=== PATIENT | female | born 1940 | race Caucasian/White ===

== ENCOUNTER 2017-05-04 06:01 | Observation (INO) | payer MEDICARE, OTHER ==
--- NOTE | 2017-05-04 06:30 | EDM.PDOC ---
ED HPI GENERAL MEDICAL PROBLEM - General Chief Complaint: Syncope Stated Complaint: SYNCOPE Time Seen by Provider: 05/04/17 06:05 Source of Information: Reports: Patient, Family History Limitations: Reports: No Limitations - History of Present Illness INITIAL COMMENTS - FREE TEXT/NARRATIVE: This is a 77-year-old female. They are staying in [place] in their RV. This morning she apparently woke up because she was congested she got out of bed and went to the bathroom to spray some saline and her nose then she walked to the kitchen to see what time it was initially was walking back she passed out. The patient does not remember passing out however she does remember waking up. Her found her on the floor in the hallway of the RV. When he got to her she was mostly unresponsive but she came awake quickly she was slightly confused for about a minute or 2 and then she's been coherent since that time. She's had no chest pain and she doesn't believe she hit her head she denies any back pain or extremity pain. She was not diaphoretic when the got to her. When she first started waking up she complained of some mild dizziness and nausea but no vomiting. She takes no prescription medications for diabetes blood pressure heart problems. Other than the upper respiratory infection she denies any other recent illnesses. 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 Denies: Diarrhea, Vomiting : Reports: No Symptoms Musculoskeletal: Reports: No Symptoms Skin: Reports: No Symptoms Neurological: Reports: Confusion, Dizziness. Denies: Headache, Tingling Psychiatric: Reports: No Symptoms Hematologic/Lymphatic: Reports: No Symptoms - Physical Exam Exam: See Below Exam Limited By: No Limitations General Appearance: Alert, WD/WN, No Apparent Distress, Other (Patient is coherent is oriented 3 and denies any physical maladies) Eye Exam: Bilateral Eye: Normal Inspection, Other (Good pupillary reflex) Ears: Normal External Exam, Normal Canal, Normal TMs Nose: Normal Inspection Throat/Mouth: Normal Inspection, Normal Lips, Normal Oropharynx, Normal Voice, No Airway Compromise Head Exam: Atraumatic, Normocephalic Neck: Supple, Non-Tender Respiratory/Chest: No Respiratory Distress, Lungs Clear, Normal Breath Sounds Cardiovascular: Regular Rate, Rhythm, No Murmur GI/Abdominal: Soft Neuro Exam (Abbreviated): Alert, Oriented, Normal Cognition Back Exam: Normal Inspection, Full Range of Motion Extremities: Normal Inspection, Normal Range of Motion, Non-Tender, No Pedal Edema Psychiatric: Normal Affect, Normal Mood Skin Exam: Warm, Dry EKG INTERPRETATION EKG Date: 05/04/17 Time: 06:35 EKG Interpretation Comments: EKG shows a normal sinus rhythm with no acute ST or T-wave changes and no ischemic changes noted. Course - Vital Signs Last Recorded V/S: Last Vital Signs Temp 97.3 F 05/04/17 06:08 Pulse 81 05/04/17 06:08 Resp 20 05/04/17 06:08 BP 147/115 H 05/04/17 06:08 Pulse Ox 100 05/04/17 06:08 - Orders/Labs/Meds Orders: Active Orders 24 hr Category Date Time Status Patient Status [ADT] Routine ADT 05/04/17 08:06 Ordered EKG 12 Lead [EKG Documentation Completion] [RC] STAT Care 05/04/17 06:28 Active Head wo Cont [CT] Stat Exams 05/04/17 06:27 Taken Labs: Laboratory Tests 05/04/17 05/04/17 Range/Units 06:43 06:43 WBC 8.71 (3.98-10.04) K/mm3 RBC 4.53 (3.98-5.22) M/mm3 Hgb 13.3 (11.2-15.7) gm/L Hct 40.0 (34.1-44.9) % MCV 88.3 (79.4-94.8) fl MCH 29.4 (25.6-32.2) pg MCHC 33.3 (32.2-35.5) g/dl RDW Std Deviation 42.1 (36.4-46.3) fL Plt Count 222 (182-369) K/mm3 MPV 10.3 (9.4-12.3) fl Neut % (Auto) 76.3 H (34.0-71.1) % Lymph % (Auto) 16.0 L (19.3-51.7) % [place] % (Auto) 6.0 (4.7-12.5) % Eos % (Auto) 1.1 (0.7-5.8) Baso % (Auto) 0.3 (0.1-1.2) % Neut # (Auto) 6.64 H (1.56-6.13) K/mm3 Lymph # (Auto) 1.39 (1.18-3.74) K/mm3 [place] # (Auto) 0.52 H (0.24-0.36) K/mm3 Eos # (Auto) 0.10 (0.04-0.36) K/mm3 Baso # (Auto) 0.03 (0.01-0.08) K/mm3 Sodium 141 (136-145) mEq/L Potassium 4.0 (3.5-5.1) mEq/L Chloride 105 (98-107) mEq/L Carbon Dioxide 28 (21-32) mEq/L Anion Gap 12.0 (5-15) BUN 19 H (7-18) mg/dL Creatinine 0.9 (0.55-1.02) mg/dL Est Cr Clr Drug Dosing 52.52 mL/min Estimated GFR (MDRD) > 60 (>60) mL/min BUN/Creatinine Ratio 21.1 H (14-18) Glucose 112 (83-115) mg/dL Calcium 10.0 (8.5-10.1) mg/dL Total Bilirubin 0.4 (0.2-1.0) mg/dL AST 20 (15-37) U/L ALT 22 (14-59) U/L Alkaline Phosphatase 88 (46-116) U/L Troponin I 0.024 (0.00-0.056) ng/mL Total Protein 7.3 (6.4-8.2) g/dl Albumin 3.7 (3.4-5.0) g/dl Globulin 3.6 gm/dL Albumin/Globulin Ratio 1.0 (1-2) - Radiology Interpretation Free Text/Narrative:: CT Scan shows a minimal hyperdensity in the right parietal subdural 3.5 mm in length which they think represents a prominent venous structure however they cannot rule out an acute subdural. - Re-Assessments/Exams Free Text/Narrative Re-Assessment/Exam: 05/04/17 08:03 I spoke to the patient and the regarding this finding and we are going to keep her in observation with neuro checks and then do an MRI tomorrow morning and if it's good we will release her at that time if it's not then we will find appropriate care for her. Even though they live in [place] I am concerned that if further bleeding occurs that treatment would be delayed if she were home were driving home and it would be best to have her in observation here. Departure - Departure Time of Disposition: 08:04 Disposition: Refer to Observation Condition: Good Clinical Impression: Syncope and collapse, Subdural hematoma - Discharge Information Referrals: PCP,Not In Area [Primary Care Provider] - Forms: ED Department Discharge Additional Instructions: I spoke with Dr. Adames and he will admit the patient to observation for further evaluation and treatment - My Orders Last 24 Hours: My Active Orders 05/04/17 06:27 Head wo Cont [CT] Stat 05/04/17 06:28 EKG 12 Lead [EKG Documentation Completion] [RC] STAT 05/04/17 08:06 Patient Status [ADT] Routine - Assessment/Plan Last 24 Hours: My Active Orders 05/04/17 06:27 Head wo Cont [CT] Stat 05/04/17 06:28 EKG 12 Lead [EKG Documentation Completion] [RC] STAT 05/04/17 08:06 Patient Status [ADT] Routine
--- NOTE | 2017-05-04 09:20 | PCM.HP ---
H&P History of Present Illness - General Date of Service: 05/04/17 Admit Problem/Dx: Admission Diagnosis/Problem Admission Diagnosis/Problem Syncope and collapse Source of Information: Patient, Family, Provider, RN Notes Reviewed History Limitations: Reports: No Limitations - History of Present Illness Initial Comments - Free Text/Narative: This is a 77 year old healthy elderly white female with no significant past medical history except for allergic rhinitis, sinusitis and migraines who was brought over to the emergency department for evaluation after she developed a one-time episode of syncope that took place in her RV. Patient and her are currently staying in [place]. They are originally from [place]. This morning apparently the patient feeling congested got out of bed and went to the bathroom to use some nasal spray. When she walked to the kitchen to check the time, she passed out on her way back. She denies any memory of the event but remembers waking up. The event was unwitnessed but she was found by her on the floor in the hallway all of their RV. When she was found the patient was unresponsive and when she woke up she was slightly confused for about 2 minutes or so and then came back to her baseline. Patient denies any prodromal symptoms. No seizures activity noted. No loss of bladder or bowel control. She has not had any episode of it in the past. Her symptom was associated with mild dizziness and nausea but no vomiting on presentation to the emergency department. Her initial workup in ED shows a fairly unremarkable CBC and chemistry. Her troponin 1 is negative. Her UA is negative and it does not suggest severe dehydration. Her EKG shows normal sinus rhythm. Head CT scan [facility] report reads minimal hyperdensity in the right parietal subdural space 3.5 mm in width. This is thought to be prominent venous structure. Her initial vital signs on presentation to the emergency department shows a temperature of 97.3F, pulse of 81 bpm, respiratory rate of 20, blood pressure 147/15 mm per mercury and O2 sat of 100% on room air. Patient is being admitted for further observation and for a brain MRI in the morning. She is full code. 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 Denies: Chest Pain, Palpitations, Dyspnea on Exertion, Lightheadedness, Claudication, Blood Pressure Problem Gastrointestinal: Denies: Abdominal Pain, Nausea, Vomiting Genitourinary: Reports: No Symptoms Musculoskeletal: Reports: No Symptoms Skin: Denies: Cyanosis, Jaundice, Mottled, Pallor, Erythema, Wound, Change in Hair/Nails Psychiatric: Denies: Confusion, Depression, Mood Lability, Anxiety, Hallucinations, Suicidal Ideation, Homicidal Ideation, Hallucinations (Auditory) Neurological: Reports: Dizziness, Syncope. Denies: Confusion, Headache, Paresthesia, Pre-Existing Deficit, Seizure, Tingling, Tremors, Trouble Speaking , Difficulty Walking, Weakness, Change in Speech, Gait Disturbance Hematologic/Lymphatic: Reports: No Symptoms Immunologic: Reports: No Symptoms Exam - Exam Exam: See Below - Vital Signs Vital Signs: Last Vital Signs Temp 36.3 C 05/04/17 06:08 Pulse 81 05/04/17 06:08 Resp 20 05/04/17 06:08 BP 147/115 H 05/04/17 06:08 Pulse Ox 100 05/04/17 06:08 Weight: 66.678 kg - Exam General: Alert, Oriented, Cooperative. No: Mild Distress HEENT: Conjunctiva Clear, EACs Clear, EOMI, Hearing Intact, Mucosa Moist & [place] , Normal Nasal Septum, Posterior Pharynx Clear, Pupils Equal, Pupils Reactive, Rhinitis. No: Nares Patent (congested) Neck: Supple, Trachea Midline, +2 Carotid Pulse wo Bruit, Full Range of Motion. No: JVD Lungs: Clear to Auscultation, Normal Respiratory Effort Cardiovascular: Regular Rate, Regular Rhythm GI/Abdominal Exam: Normal Bowel Sounds, Soft, Non-Tender, No Organomegaly, No Distention, No Abnormal Bruit, No Mass (Female) Exam: Deferred Rectal (Female) Exam: Deferred Back Exam: Normal Inspection, Decreased Range of Motion Extremities: Normal Inspection, Normal Range of Motion, Non-Tender, No Pedal Edema, Normal Capillary Refill Skin: Warm, Dry, Intact Neuro Extensive - Mental Status: Oriented x3, Normal Cognition, Memory Intact Neuro Extensive - Motor, Sensory, Reflexes: CN II-XII Intact, Abnormal Gait DTR: 2+: Patella (L), Patella (R) Psychiatric: Alert, Normal Affect, Normal Mood - Patient Data Result Diagrams: 05/05/17 06:20 05/05/17 06:20 EKG INTERPRETATION EKG Date: 05/04/17 Time: 06:38 Rhythm: NSR Rate (Beats/Min): 69 *Q Meaningful Use (ADM) - VTE *Q VTE Criteria *Q: - Stroke *Q Stroke Criteria *Q: - AMI *Q AMI Criteria *Q: Problem List Initiated/Reviewed/Updated: Yes Assessment/Plan Comment:: Assessment/Plan: Acute: Minimal Hyperdensity in the right parietal subdural3.5 mm in with - Prominent venous structure versus acute subdural hematoma - Patient has a recent fall and she passed out - Neurological monitoring per unit protocol - Brain MRI in AM S/p Syncope with Collapsed - Unclear in etiology but possible vasovagal from malignant HTN - She had a document BP of 147/115 mmHg on admission - She carries no hx/o HTN - No cardiac arrhythmia on EKG or Telemetry - She is not clinically dehydrated - UA was negative for UTI Chronic: Allergic Rhinitis Sinusitis Plan: Admit to the floor w/ Tele Routine AM Labs Afrin 15 ml nasal spray 1-2 puff each nostril BID Orthostatic check Resume Home Meds if there are any PT/OT eval Brain MRI in AM SW/CM for d/c planning Code status:1
[2017-05-04] MEDS ORDERED: Acetaminophen/HYDROcodone 325-5 MG Tab PO PRN (09:21)
[2017-05-04] MEDS ORDERED: Docusate Sodium 100 MG Cap PO PRN (09:21)
[2017-05-04] MEDS ORDERED: HYDROmorphone 1 MG/ML Syringe IVPUSH PRN (09:21)
[2017-05-04] MEDS ORDERED: LORazepam 2 MG/ML MDV IV PRN (09:21)
[2017-05-04] MEDS ORDERED: Polyethylene Glycol 3350 Powder 17 GM Packet PO PRN (09:21)
[2017-05-04] MEDS ORDERED: Bisacodyl 5 MG Tab PO PRN (09:21)
[2017-05-04] MEDS ORDERED: Acetaminophen 325 MG Tab PO PRN (09:21)
[2017-05-04] MEDS ORDERED: Temazepam 7.5 MG Cap PO PRN (09:21)
[2017-05-04] MEDS ORDERED: Promethazine 12.5 MG in Sodium Chloride 0.9% 50 ML IV PRN (09:21)
[2017-05-04] MEDS ORDERED: Magnesium Hydroxide 400 MG/5 ML Susp 30 ML Cup PO PRN (09:21)
[2017-05-04] MEDS ORDERED: Albuterol/Ipratropium 3.0-0.5 MG/3 ML Neb Soln NEB PRN (09:21)
[2017-05-04] MEDS ORDERED: Ondansetron 4 MG/2 ML SDV IV PRN (09:21)
[2017-05-04] MEDS ORDERED: Scopolamine 1.5 MG Transdermal Patch TOP ONE (09:29)
[2017-05-04] MEDS ORDERED: Meclizine 12.5 MG Tab PO PRN (09:29)
[2017-05-04] MEDS ORDERED: Metoprolol Tartrate 5 MG/5 ML SDV IVPUSH PRN (09:33)
[2017-05-04] MEDS ORDERED: hydrALAZINE 20 MG/ML SDV IVPUSH PRN (09:33)
[2017-05-04] MEDS: Oxymetazoline 0.05% Nasal Spray 15 ML Bottle NAS SCH ×2 (11:17→21:42)
[2017-05-04] MEDS: Sodium Chloride 0.9% 1,000 ML IV SCH (11:17)
--- NOTE | 2017-05-04 18:24 | CT ---
Head CT Technique: Multiple axial sections through the brain were obtained. Intravenous contrast was not utilized. Comparison: No previous intracranial imaging. Findings: Ventricles along with basal cisterns and sulci over the convexities are within normal limits for the patient's age. 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 Small vessel ischemic demyelination change is also noted within the periventricular white matter. Preliminary report mentions small hyperdense area within the right parietal region which I believe is artifact rather than representing a real hemorrhage. No other abnormal parenchymal densities are seen. No evidence of intracranial hemorrhage. No midline shift or mass effect is seen. Bone window settings were reviewed which show the visualized sinuses to appear clear. No acute calvarial abnormality is seen. Mild atherosclerotic calcification noted within the carotid siphon. Impression: 1. Senescent change as described above. 2. Nothing acute is appreciated on noncontrast head CT exam. Diagnostic code #2 Mostly agree with preliminary report issued by [facility], small area of increased density within the right parietal region described on preliminary report is felt to be artifact. ([facility] preliminary report dictated on 05/04/17, 8:47 AM Central Type)
[2017-05-05] MEDS: Sodium Chloride 0.9% 1,000 ML IV SCH (04:37)
--- NOTE | 2017-05-05 08:08 | PCM.DCSUM1 ---
Discharge Summary - Hospital Course Brief History: This is a 77 year old fairly healthy elderly white female with no significant past medical history except for allergic rhinitis, sinusitis and migraines who was brought over to the emergency department for evaluation after she developed a one-time episode of syncope that took place in her RV at [place]. She was admitted for further evaluation. - Discharge Data Discharge Date: 05/05/17 Discharge Disposition: Home, Self-Care 01 Condition: Good - Discharge Diagnosis/Problem(s) (1) Malignant essential hypertension SNOMED Code(s): 63340302 ICD Code: I10 - ESSENTIAL (PRIMARY) HYPERTENSION Status: Acute (2) Syncope and collapse SNOMED Code(s): 755512189 ICD Code: R55 - SYNCOPE AND COLLAPSE Status: Resolved (3) Vasovagal symptom SNOMED Code(s): 472710664 ICD Code: F45.8 - OTHER SOMATOFORM DISORDERS Status: Resolved - Patient Summary/Data Operative Procedure(s) Performed: None Complications: None Consults: Consultations 05/04/17 09:21 Consult to Case Management [CONS] Routine Consult to Hand Wrapper Operator [CONS] Routine Consult to Spiritual Care [CONS] Routine OT Evaluation and Treatment [CONS] Routine PT Evaluation and Treatment [CONS] Routine Recommended Follow-up Testing/Procedures: None Hospital Course: Patient was primarily admitted for medical evaluation of onetime episode of syncope with collapsed. This happened while the patient was in her RV at [place]. Her basic diagnostic workup to include routine EKGs, telemetry, head CT scan, cardiac enzyme and labs were all benign. We felt her syncope was related to vasovagal in etiology. Her follow-up MRI this morning revealed no acute abnormalities as previously noted on her head CT scan. However during this admission, she was found to have a considerably elevated blood pressure documented at 147/115 mm per mercury. The patient carried no history of hypertension. She was a fairly healthy young woman in her age group. But with antihypertensive medications, her blood pressures improved. Her last documented 3 blood pressures were as follows: 116/73, 138/83 and 120/78 mmHg. Her hospital course was uncomplicated. The patient is now stable and ready for discharge. She was advised to stay hydrated and to check her blood pressure 3 times a day and 3-4 times a week. She is to show her log to her primary care provider on follow-up appointment. She was further advised to follow up with her PCP in 1-2 weeks. Patient expressed understanding and in agreement with the plans as discussed above. All questions were answered. - Patient Instructions Diet: Usual Diet as Tolerated Activity: As Tolerated Driving: May Drive Today Showering/Bathing: May Shower Notify Provider of: Fever, Nausea and/or Vomiting Other/Special Instructions: - Please continue all home medications. - Stay hydrated specially this time of the year. - Please check your blood pressure 3x /day and 3-4x/week. Show log on your follow up appointment. - Call or follow up with your family doctor in 1-2 weeks - Discharge Plan Home Medications: Home Meds Calcium Carbonate [Calcium] 1 tab PO DAILY 05/04/17 [History] Cholecalciferol (Vitamin D3) [Vitamin D] 1 tab PO DAILY 05/04/17 [History] Docosahexanoic Acid/EPA [Fish Oil Concentrate Softgel] 1 each PO DAILY 05/04/17 [History] Multivitamin/Iron/Folic Acid [Centrum Women Tablet] 1 each PO DAILY 05/04/17 [ History] Patient Handouts: Syncope, [id number] Referrals: PCP,Not In Area [Primary Care Provider] - - Discharge Summary/Plan Comment DC Time >30 min.: Yes (45 mins) Discharge Summary/Plan Comment: Discharge to Home - General Info Date of Service: 05/05/17 Admission Dx/Problem (Free Text: Admission Diagnosis/Problem Admission Diagnosis/Problem Syncope and collapse Subjective Update: Follow Up Functional Status: Reports: Pain Controlled, Tolerating Diet, Ambulating, Urinating - Review of Systems General: Denies: Fever, Weakness, Fatigue, Malaise, Chills HEENT: Reports: No Symptoms Pulmonary: Denies: Shortness of Breath Cardiovascular: Denies: Chest Pain, Palpitations, Dyspnea on Exertion, Lightheadedness Gastrointestinal: Denies: Abdominal Pain, Nausea, Vomiting Genitourinary: Reports: No Symptoms Musculoskeletal: Reports: No Symptoms Skin: Denies: Cyanosis, Jaundice, Pallor, Diaphoresis, Pruritis, Rash Neurological: Denies: Confusion, Dizziness, Headache, Seizure, Syncope, Tremors , Difficulty Walking, Weakness, Gait Disturbance Psychiatric: Denies: Depression, Anxiety, Agitation, Hallucinations, Suicidal Ideation Systems Review Comment: No overnight or acute issues. She is ding relatively well. She has no new complaints. Her blood pressure remains stable since she got to the floor. - Patient Data Vitals - Most Recent: Last Vital Signs Temp 36.3 C 05/05/17 03:30 Pulse 64 05/05/17 03:30 Resp 16 05/05/17 03:30 BP 138/83 05/05/17 03:30 Pulse Ox 98 05/05/17 03:30 Orthostatic Blood Pressure [ 140/78 Standing] Orthostatic Blood Pressure [ 144/79 Sitting] Orthostatic Blood Pressure [ 132/66 Supine] Weight - Most Recent: 66.678 kg I&O - Last 24 hours: Intake & Output 05/04/17 05/05/17 05/05/17 22:59 06:59 14:59 Intake Total 1416 1189 Output Total 700 900 Balance 716 289 Lab Results - Last 24 hrs: Laboratory Results - last 24 hr 05/04/17 05/05/17 05/05/17 Range/Units 15:30 06:20 06:20 WBC 6.14 (3.98-10.04) K/mm3 RBC 4.36 (3.98-5.22) M/mm3 Hgb 12.8 (11.2-15.7) gm/L Hct 38.5 (34.1-44.9) % MCV 88.3 (79.4-94.8) fl MCH 29.4 (25.6-32.2) pg MCHC 33.2 (32.2-35.5) g/dl RDW Std Deviation 41.7 (36.4-46.3) fL Plt Count 231 (182-369) K/mm3 MPV 10.4 (9.4-12.3) fl Neut % (Auto) 64.4 (34.0-71.1) % Lymph % (Auto) 25.2 (19.3-51.7) % [place] % (Auto) 7.7 (4.7-12.5) % Eos % (Auto) 1.8 (0.7-5.8) Baso % (Auto) 0.7 (0.1-1.2) % Neut # (Auto) 3.96 (1.56-6.13) K/mm3 Lymph # (Auto) 1.55 (1.18-3.74) K/mm3 [place] # (Auto) 0.47 H (0.24-0.36) K/mm3 Eos # (Auto) 0.11 (0.04-0.36) K/mm3 Baso # (Auto) 0.04 (0.01-0.08) K/mm3 Sodium 142 (136-145) mEq/L Potassium 3.9 (3.5-5.1) mEq/L Chloride 108 H (98-107) mEq/L Carbon Dioxide 26 (21-32) mEq/L Anion Gap 11.9 (5-15) BUN 15 (7-18) mg/dL Creatinine 0.8 (0.55-1.02) mg/dL Est Cr Clr Drug Dosing 59.09 mL/min Estimated GFR (MDRD) > 60 (>60) mL/min BUN/Creatinine Ratio 18.8 H (14-18) Glucose 98 (83-115) mg/dL Calcium 9.5 (8.5-10.1) mg/dL Magnesium 2.0 (1.8-2.4) mg/dl Urine Color Yellow (Yellow) Urine Appearance Clear (Clear) Urine pH 7.5 (5.0-8.0) Ur Specific [place] 1.020 (1.005-1.030) Urine Protein Negative (Negative) Urine Glucose (UA) Negative (Negative) Urine Ketones Trace H (Negative) Urine Occult Blood Negative (Negative) Urine Nitrite Negative (Negative) Urine Bilirubin Negative (Negative) Urine Urobilinogen 0.2 (0.2-1.0) Ur Leukocyte Esterase Trace H (Negative) Urine RBC 0-5 (0-5) /hpf Urine WBC 0-5 (0-5) /hpf Ur Epithelial Cells 0-5 (0-5) /hpf Urine Bacteria Rare (FEW) /hpf Urine Mucus Not seen (FEW) /hpf Med Orders - Current: Current Medications Acetaminophen (Tylenol) 650 mg PO Q4H PRN PRN Reason: Pain (Mild 1-3)/fever Hydrocodone Bitart/Acetaminophen ([place] 325-5 Mg) 1 tab PO Q4H PRN PRN Reason: Pain (moderate 4-6) Albuterol/Ipratropium (Duoneb 3.0-0.5 Mg/3 Ml) 3 ml NEB Q4H PRN PRN Reason: Shortness Of Breath/wheezing Bisacodyl (Dulcolax) 5 mg PO DAILY PRN PRN Reason: Constipation Docusate Sodium (Colace) 100 mg PO BID PRN PRN Reason: Constipation Hydralazine HCl (Apresoline) 20 mg IVPUSH Q4H PRN PRN Reason: Hypertension Hydromorphone HCl (Dilaudid) 0.25 mg IVPUSH Q4H PRN PRN Reason: Pain (severe 7-10) Promethazine HCl 12.5 mg/ (Sodium Chloride) 50.5 mls @ 100 mls/hr IV Q6H PRN PRN Reason: Nausea/Vomiting Sodium Chloride (Normal Saline) 1,000 mls @ 75 mls/hr IV ASDIRECTED [facility] Last Admin: 05/05/17 04:37 Dose: 75 mls/hr Lorazepam (Ativan) 1 mg IV Q6H PRN PRN Reason: Anxiety Magnesium Hydroxide (Milk Of Magnesia) 30 ml PO Q12H PRN PRN Reason: Constipation Magnesium Sulfate (Pharmacy To Dose - Magnesium Replacement) 1 dose .XX ASDIRECTED [facility] Meclizine HCl (Antivert) 12.5 mg PO Q6H PRN PRN Reason: Dizziness Metoprolol Tartrate (Lopressor) 5 mg IVPUSH Q4H PRN PRN Reason: Tachycardia Ondansetron HCl (Zofran) 4 mg IV Q6H PRN PRN Reason: Nausea/Vomiting Oxymetazoline HCl (Afrin Original 0.05% Nasal [place]) 0 ml STELLA Q12HR [facility] Last Admin: 05/04/17 21:42 Dose: 2 sprays Polyethylene Glycol (Miralax) 17 gm PO DAILY PRN PRN Reason: Constipation Potassium Chloride (Pharmacy To Dose - Potassium Replacement) 1 dose .XX ASDIRECTED [facility] Senna/Docusate Sodium (Senna Plus) 1 tab PO BID PRN PRN Reason: Constipation Temazepam (Restoril) 7.5 mg PO BEDTIME PRN PRN Reason: Sleep Discontinued Medications Scopolamine (Transderm-Scop) 1.5 mg TOP ONETIME ONE Stop: 05/04/17 09:30 Last Admin: 05/04/17 10:20 Dose: 1.5 mg - Exam General: Reports: Alert, Oriented, Cooperative, No Acute Distress HEENT: Reports: Pupils Equal, Pupils Reactive, EOMI, Mucous Membr. Moist/[place] Neck: Reports: Supple, Trachea Midline, No JVD, No Thyromegaly Lungs: Reports: Clear to Auscultation, Normal Respiratory Effort Cardiovascular: Reports: Regular Rate, Regular Rhythm GI/Abdominal Exam: Normal Bowel Sounds, Soft, Non-Tender, No Organomegaly, No Distention, No Abnormal Bruit, No Mass (Female) Exam: Deferred Rectal (Female) Exam: Deferred Back Exam: Reports: Normal Inspection, Decreased Range of Motion Extremities: Normal Inspection, Normal Range of Motion, Non-Tender, No Pedal Edema, Normal Capillary Refill Skin: Reports: Warm, Dry, Intact Neurological: Reports: No New Focal Deficit Psy/Mental Status: Reports: Alert, Normal Affect, Normal Mood *Q Meaningful Use (DIS) - VTE *Q VTE Criteria *Q: - Stroke *Q Stroke Criteria *Q: - AMI *Q AMI Criteria *Q:
[2017-05-05 08:20] VITALS: BP 120/78
[2017-05-05] MEDS: Oxymetazoline 0.05% Nasal Spray 15 ML Bottle NAS SCH (08:40)
[2017-05-05] MEDS ORDERED: LORazepam 1 MG Tab PO ONE (10:30)
[2017-05-05] MEDS ORDERED: Gadobenate Dimeglumine 529 MG/ML 15 ML SDV IVPUSH ONE (11:44)
[2017-05-05] MEDS ORDERED: HYDROmorphone 0.5 MG/0.5 ML Syringe IVPUSH PRN (11:49)
--- NOTE | 2017-05-05 14:45 | MR ---
MRI brain (with and without contrast) Technique: T1 sagittal; T2, T2 FLAIR, T1 and diffusion axial; T1 FLAIR coronal; post gadolinium T1 axial and post gadolinium T1 FLAIR coronal images were obtained. Comparison: Previous head CT study of 05/04/17. Findings: Ventricles along with basal cisterns and sulci over the convexities are within normal limits for the patient's age. Incidental cortical vein is noted on the right side. No abnormal enhancing meningeal lesions are seen. No abnormal enhancement is seen within the brain parenchyma. Normal signal void is seen within the major cerebral arteries at the skull base. Small areas of scattered increased signal are noted within the periventricular and subcortical white matter which are compatible with small vessel ischemic demyelination change. No acute diffusion abnormalities are seen. Impression: 1. Mild areas of increased signal within the periventricular and subcortical white matter most likely due to small vessel ischemic demyelination change. 2. Incidental cortical vein along the right side. 3. MRI study of the brain is otherwise unremarkable. Diagnostic code #2
== END 2017-05-05 16:05 | disposition home or self-care (01) ==
LOC: JD.ED 06:01 → MERGE 08:06 → JD.MS 08:06
PROVIDERS: ADMIT Internal Medicine; ATTEND Internal Medicine
DX: R55 Syncope and collapse (principal); I10 Essential (primary) hypertension; F45.8 Other somatoform disorders; Z90.89 Acquired absence of other organs; J30.9 Allergic rhinitis, unspecified; J32.9 Chronic sinusitis, unspecified; Z79.899 Other long term (current) drug therapy
CPT/HCPCS: 36415; 70450; 70553; 80048; 80053; 81001; 83735; 84484; 85025; 93005; 96360; 96361; 97161; 97165; 99285; A9270; A9577; G0378; J7040